=== PATIENT | male | born 1955 | race Caucasian/White ===

== ENCOUNTER 2020-08-23 11:36 | Emergency (ER) | payer OTHER ==
[2020-08-23 11:49] VITALS: BP 116/77; PULSE 78; TEMP 97.9; BMI 24.4
== END 2020-08-23 13:04 | disposition home or self-care (01) ==
LOC: FER 11:36
DX: S90.852A Superficial foreign body, left foot, initial encounter (principal)
CPT/HCPCS: 73630-TC-LT; 99283-25